=== PATIENT | female | born 1950 | race Caucasian/White ===

== ENCOUNTER 2018-04-13 12:25 | Emergency (ER) | payer MEDICARE, BC ==
[2018-04-13 13:09] LABS: #Basophils 0.1 thou/uL (0.0-0.2); #Eosinphils 0.1 thou/uL (0.0-0.7); #Lymphocytes 1.3 thou/uL (1.20-3.40); #Monocytes 0.8 thou/uL (0.11-0.59); #Neutrophils 7.1 thou/uL (1.40-6.50); %Basophils 0.6 % (0.0-1.0); %Eosinophils 0.6 % (0.0-10.0); %Lymphocytes 14.2 % (21.0-51.0); %Monocytes 8.4 % (0.0-10.0); %Neutrophils 76.3 % (42.0-75.0); Hemoglobin 10.6 g/dL (12.0-16.0); Mean Corpuscular HGB CONC 33.3 g/dL (32.0-36.0); Mean Corpuscular Hemoglobin 30.4 pg (27.0-31.0); Mean Corpuscular Volume 91.3 fL (78.0-98.0); Mean Platelet Volume 6.7 fL (7.4-10.4); Platelet Count 381 thou/uL (130-400); RBC Distribution Width 12.2 % (11.5-14.5); White Blood Cell (WBC) Count 9.3 thou/uL (4.8-10.8)
[2018-04-13 13:15] LABS: PTT 29.5 SEC (22.9-36.1); Prothrombin Time 13.2 SEC (12.0-14.7)
[2018-04-13 13:23] LABS: ALT (SGPT) 11 U/L (8-55); AST (SGOT) 15 U/L (5-34); Alkaline Phosphatase 80 U/L (40-150); Anion Gap 12 mmol/L (10-20); BUN (Urea Nitrogen) 11 mg/dL (9.8-20.1); Bilirubin, Total 0.5 mg/dL (0.2-1.2); Calc. Creatinine Clearance 0 mL/min (70-130); Calcium 8.8 mg/dL (7.8-10.44); Carbon Dioxide 26 mmol/L (23-31); Chloride 106 mmol/L (98-107); Estimated GFR-MDRD 80; Globulin 2.6 g/dL (2.4-3.5); Glucose 95 mg/dL (80-115); Lipase 28 U/L (8-78); Protein, Total 6.6 g/dL (6.0-8.3); Sodium 140 mmol/L (136-145)
--- NOTE | 2018-04-13 13:29 | RAD ---
SACRUM AND COCCYX THREE VIEWS: History: 67-year-old female with history of MS. Sacrum and coccygeal and tailbone pain following a fall. FINDINGS/IMPRESSION: Bilateral SI Joint degenerative changes. No overt sacral or coccygeal fracture. If the patient has pe rsistent or worsening pain or other symptoms referable to this region, consider follow up additional imaging with MRI to evaluate for the possibility of an insufficiency type fracture which would not be evident on plain film and may be not even on CT. POS: [facility]
--- NOTE | 2018-04-13 13:30 | RAD ---
LEFT WRIST THREE VIEWS: INDICATIONS: Lost balance and fell with left wrist injury. FINDINGS: There is a mildly dorsally displaced, dorsally impacted, comminuted intraarticular distal radius frac ture. There is some component extending into the lunate fossa, without significant articular surface depression. The distal fracture fragments displace posteriorly 2.5 mm. No additional fracture is e vident. 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 IMPRESSION: Dorsally displaced and mildly dorsally angulated intraarticular distal radius fracture of the left wr ist. POS: [facility]
[2018-04-13 14:01] LABS: Bilirubin Negative (Negative); Blood, Urine Negative (Negative); Clarity CLOUDY (Clear); Glucose, Urine (Dipstick) Negative (Negative); Leukocyte Negative (Negative); Nitrite Negative (Negative); Protein, Urine (Dipstick) Negative (Neg-Trace); Specific Gravity, Urine 1.019 (1.002-1.036)
== END 2018-04-13 16:30 | disposition home or self-care (01) ==
LOC: ERS 12:25
DX: S52.572A Other intraarticular fracture of lower end of left radius, initial encounter for closed fracture (principal); K92.2 Gastrointestinal hemorrhage, unspecified; Z79.899 Other long term (current) drug therapy; W19.XXXA Unspecified fall, initial encounter
CPT/HCPCS: 29125; 36415; 72220; 80053; 81003; 82274; 83690; 85025; 85610; 85730; 86900; 86901

== ENCOUNTER 2024-04-17 13:00 | Day surgery (SDC) | payer MEDICARE ==
[2024-04-17] MEDS: Ferumoxytol (NON ERSD) 510 MG in 0.9 % Sodium Chloride 150 ML IVPB SCH (13:31)
[2024-04-17 15:19] VITALS: BP 132/63; TEMP 98.1
== END 2024-04-17 15:15 | disposition home or self-care (01) ==
LOC: ONC/OP 13:00
PROVIDERS: ATTEND Internal Medicine Gastroenterology
DX: D50.9 Iron deficiency anemia, unspecified (principal); Z88.6 Allergy status to analgesic agent; Z91.040 Latex allergy status
CPT/HCPCS: 96365; Q0138

== ENCOUNTER 2024-04-24 12:19 | Day surgery (SDC) | payer MEDICARE ==
[~2024-04-24 12:19] MED LIST: Ferumoxytol (NON ERSD) 510 MG in Sodium Chloride 0.9% 250 ML 150 ML IVPB SCH
[2024-04-24] MEDS: Ferumoxytol (NON ERSD) 510 MG in 0.9 % Sodium Chloride 150 ML IVPB SCH (12:59)
[2024-04-24 13:16] VITALS: TEMP 98.1
[2024-04-24 14:17] VITALS: BP 128/70
== END 2024-04-24 14:17 | disposition home or self-care (01) ==
LOC: ONC/OP 12:19
PROVIDERS: ATTEND Internal Medicine Gastroenterology
DX: D50.9 Iron deficiency anemia, unspecified (principal); Z91.040 Latex allergy status; Z88.6 Allergy status to analgesic agent
CPT/HCPCS: 96365; Q0138